=== PATIENT | female | born 1980 | race Caucasian/White ===

== ENCOUNTER 2016-05-13 16:39 | Inpatient (IN) | payer BC, SELFPAY ==
[2016-05-13] VITALS (8 sets, daily range): BP systolic 107–126; RESP 14–20; TEMP 97.1
[~2016-05-13 16:39] MED LIST: FENTANYL 100 MCG/2 ML AMP IV ONE; LIDOCAINE 2% JELLY GLYDO 6 ML TOPICAL ONE; PROPOFOL 50ML PER ML IV ONE
[2016-05-13] MEDS ORDERED: CEFTRIAXONE 1 GM VIAL ONE (21:47)
[2016-05-13] MEDS ORDERED: SODIUM CHLORIDE 0.9% 250 ML IV ONE (21:48)
[2016-05-13] MEDS ORDERED: SCOPOLAMINE PATCH TRANSDERM ONE (23:05)
[2016-05-13] MEDS ORDERED: OXYCODONE 5 MG TAB PO PRN ×2 (23:05→23:20)
[2016-05-13] MEDS ORDERED: MORPHINE 4 MG/ML SYR IV PRN (23:05)
[2016-05-13] MEDS ORDERED: MEPERIDINE 25 MG/ML IV PRN (23:05)
[2016-05-13] MEDS ORDERED: MORPHINE 2 MG/ML SYR IV PRN (23:05)
[2016-05-13] MEDS ORDERED: ONDANSETRON 4 MG VIAL IV PRN (23:05)
[2016-05-13] MEDS ORDERED: GLYCOPYRROLATE 0.2 MG/ML VIAL IV ONE (23:05)
[2016-05-13] MEDS ORDERED: ONDANSETRON 4 MG VIAL IV ONE (23:05)
[2016-05-13] MEDS ORDERED: MIDAZOLAM 2 MG/2 ML INJ IV ONE (23:05)
[2016-05-13] MEDS ORDERED: ACETAMINOPHEN 325 MG TAB PO PRN (23:20)
[2016-05-13] MEDS: DILAUDID 1 MG/ML AMP IV PRN ×4 (23:29→23:50)
[2016-05-13] MEDS ORDERED: MIDAZOLAM 2 MG/2 ML INJ ONE (23:42)
[2016-05-14] VITALS (18 sets, daily range): BP systolic 118–145; RESP 13–28; TEMP 98–98.5
[2016-05-14] MEDS: SODIUM CHLORIDE 0.45% 1,000 ML IV SCH ×3 (00:47→20:57)
[2016-05-14] MEDS: ONDANSETRON 4 MG VIAL IV PRN ×3 (00:48→20:57)
[2016-05-14] MEDS: OXYCODONE 5 MG TAB PO PRN ×5 (01:46→22:32)
[2016-05-14] MEDS: DILAUDID 1 MG/ML AMP IV PRN ×3 (03:43→23:58)
[2016-05-14] MEDS: CEFTRIAXONE 1 GM in SODIUM CHLORIDE 0.9% 50 ML IV SCH (08:47)
[2016-05-14] MEDS: PHENAZOPYRIDINE 100 MG TAB PO SCH ×3 (09:31→20:10)
[2016-05-14] MEDS: ENOXAPARIN 40 MG/0.4 ML SYR SUBQ SCH (09:33)
[2016-05-14] MEDS ORDERED: SOD CHL NASAL SPR 45ML NARE EACH PRN (18:00)
[2016-05-14] MEDS ORDERED: REMOVE TRANSDERMAL PATCH TOPICAL ONE (23:05)
[2016-05-15] MEDS: ONDANSETRON 4 MG VIAL IV PRN ×2 (00:48→08:16)
[2016-05-15 03:25] VITALS: BP_SYST 137
[2016-05-15 03:26] VITALS: RESP 16; TEMP 97.4
[2016-05-15 07:43] VITALS: BP_SYST 147; RESP 16; TEMP 98.2
[2016-05-15] MEDS: CEFTRIAXONE 1 GM in SODIUM CHLORIDE 0.9% 50 ML IV SCH (08:18)
[2016-05-15] MEDS: PHENAZOPYRIDINE 100 MG TAB PO SCH ×3 (08:18→21:05)
[2016-05-15] MEDS: ENOXAPARIN 40 MG/0.4 ML SYR SUBQ SCH (08:19)
[2016-05-15 12:10] VITALS: BP_SYST 140; RESP 16; TEMP 97.4
[2016-05-15] MEDS: KCL CR 20 MEQ TAB PO SCH (14:15)
[2016-05-15] MEDS: OXYCODONE 5 MG TAB PO PRN ×2 (17:56→23:00)
[2016-05-15 19:26] VITALS: BP_SYST 138; RESP 18; TEMP 98
[2016-05-15 23:49] VITALS: BP_SYST 136; RESP 16; TEMP 98.1
[2016-05-16 04:56] VITALS: BP_SYST 125; RESP 16; TEMP 98.3
[2016-05-16 07:13] VITALS: BP_SYST 148; RESP 16; TEMP 97.6
[2016-05-16] MEDS: CEFTRIAXONE 1 GM in SODIUM CHLORIDE 0.9% 50 ML IV SCH (08:23)
[2016-05-16] MEDS: KCL CR 20 MEQ TAB PO SCH (08:23)
[2016-05-16] MEDS: ENOXAPARIN 40 MG/0.4 ML SYR SUBQ SCH (08:23)
[2016-05-16 11:12] VITALS: BP_SYST 127; RESP 16; TEMP 97.8
[2016-05-16 13:25] VITALS: BP_SYST 127; RESP 16; TEMP 97.8
[2016-05-16] MEDS ORDERED: REMOVE SCOPALAMINE PATCH XX ONE (23:05)
== END 2016-05-16 13:47 | disposition home or self-care (01) | DRG 872 ==
LOC: ENRESERVDT → ENRESERVTM → ER 16:39 → SURG 22:57 → ENPENDDIS 23:17 → EMR 23:17 → 5THW 05-14 00:15
PROVIDERS: ADMIT Urology; ATTEND Urology
PROC: 0T777DZ Dilation of Left Ureter with Intraluminal Device, Via Natural or Artificial Opening (ICD-10-PCS; principal; 2016-05-13 22:51)
PROC: BT1BZZZ Fluoroscopy of Bladder and Urethra (ICD-10-PCS; 2016-05-13 22:51)
DX: A41.9 Sepsis, unspecified organism (principal); N13.2 Hydronephrosis with renal and ureteral calculous obstruction; E87.6 Hypokalemia
CPT/HCPCS: 36415; 74000; 74420; 80048; 80053; 81001; 83605; 83690; 84145; 84703; 85025; 87040; 87088; 93005; 96374

== ENCOUNTER 2016-05-19 08:59 | Emergency (ER) | payer SELFPAY ==
[2016-05-19] MEDS ORDERED: KETOROLAC 30 MG/ML VIAL ONE (09:45)
[2016-05-19] MEDS ORDERED: ONDANSETRON 4 MG VIAL ONE (09:45)
[2016-05-19] MEDS ORDERED: SODIUM CHLORIDE 0.9% 1,000 ML ONE (09:45)
[2016-05-19] MEDS ORDERED: KETOROLAC 60 MG/2 ML VIAL IM ONE (10:36)
[2016-05-19] MEDS ORDERED: DILAUDID 1 MG/ML AMP ONE (11:45)
== END 2016-05-19 13:51 | disposition home or self-care (01) ==
LOC: ER 08:59
DX: N23 Unspecified renal colic (principal)
CPT/HCPCS: 36415; 74000; 80053; 81001; 83690; 85025; 85379; 87088; 96372